=== PATIENT | female | born 1945 | race Caucasian/White ===

== ENCOUNTER 2024-12-07 16:07 | Emergency (ER) | payer MEDICARE, BC ==
[~2024-12-07] VITALS: Ht 175.3 cm; Wt 127.0 kg
[~2024-12-07 16:07] MED LIST: CEPH500 PO
[2024-12-07 16:18] VITALS: BP 146/89
[2024-12-07 16:45] LABS: BASOPHILS ABSOLUTE AUTO 0.06 K/mm3 (0.00-0.23); BASOPHILS PERCENT AUTO 1 % (0-2); EOSINOPHILS ABSOLUTE AUTO 0.19 K/mm3 (0.00-0.68); EOSINOPHILS PERCENT AUTO 4 % (0-6); Hematocrit 37.7 % (33.0-51.0); Hemoglobin 12.5 g/dL (11.5-16.0); IMMATURE GRAN ABSOLUTE AUTO 0.01 K/mm3 (0.00-0.10); IMMATURE GRAN PERCENT AUTO 0 % (0-1); LYMPHOCYTES ABSOLUTE AUTO 1.66 K/mm3 (0.84-5.20); LYMPHOCYTES PERCENT AUTO 31 % (21-46); MONOCYTES ABSOLUTE AUTO 0.61 K/mm3 (0.16-1.47); MONOCYTES PERCENT AUTO 11 % (4-13); Mean Corpuscular HGB 34.6 pg (26.0-34.0); Mean Corpuscular HGB Conc 33.2 g/dL (31.5-36.5); Mean Corpuscular Volume 104 fL (80-100); Mean Platelet Volume 8.8 fL (9.1-12.4); NEUTROPHILS ABSOLUTE AUTO 2.85 K/mm3 (1.96-9.15); NEUTROPHILS PERCENT AUTO 53 % (41-73); Platelet Count 195 K/mm3 (150-400); RDW Coefficient Variation 14.4 % (11.7-14.2); RDW Standard Deviation 55.1 fL (35.1-46.3); Red Blood Cell Count 3.61 M/mm3 (3.80-5.20); White Blood Cell Count 5.38 K/mm3 (4.00-11.30)
[2024-12-07 17:05] LABS: Albumin, Blood 3.5 g/dL (3.4-5.0); Bilirubin, Total 0.7 mg/dL (0.1-1.0); Bun/Creatinine Ratio 24.3 (12.0-20.0); Calcium, Blood 9.4 mg/dL (8.5-10.1); Creatinine, Blood 0.74 mg/dL (0.40-1.00); Globulin, Blood 3.5 g/dL (2.2-4.0); Potassium, Blood 4.4 mmol/L (3.5-5.5)
[2024-12-07] MEDS ORDERED: Lasix20 MG PO (18:37)
== END 2024-12-07 19:07 | disposition left against medical advice (07) ==
LOC: ER 16:07
PROVIDERS: Student in an Organized Health Care Education/Training Program
DX: R60.0 Localized edema (principal); E87.70 Fluid overload, unspecified
CPT/HCPCS: 71046; 80053; 83880; 85025; 93005; 93010; 93971; 99284-25

== ENCOUNTER 2025-03-01 13:38 | Emergency (ER) | payer OTHER, BC ==
[~2025-03-01] VITALS: Ht 175.3 cm; Wt 127.0 kg
[~2025-03-01 13:38] MED LIST changes: +Lasix20 MG PO
[2025-03-01 13:43] VITALS: BP 142/64
[2025-03-01 14:17] LABS: BASOPHILS ABSOLUTE AUTO 0.06 K/mm3 (0.00-0.23); BASOPHILS PERCENT AUTO 1 % (0-2); EOSINOPHILS ABSOLUTE AUTO 0.16 K/mm3 (0.00-0.68); EOSINOPHILS PERCENT AUTO 3 % (0-6); Hematocrit 40.2 % (33.0-51.0); Hemoglobin 13.4 g/dL (11.5-16.0); IMMATURE GRAN ABSOLUTE AUTO 0.01 K/mm3 (0.00-0.10); IMMATURE GRAN PERCENT AUTO 0 % (0-1); LYMPHOCYTES ABSOLUTE AUTO 1.62 K/mm3 (0.84-5.20); LYMPHOCYTES PERCENT AUTO 26 % (21-46); MONOCYTES ABSOLUTE AUTO 0.61 K/mm3 (0.16-1.47); MONOCYTES PERCENT AUTO 10 % (4-13); Mean Corpuscular HGB 35.3 pg (26.0-34.0); Mean Corpuscular HGB Conc 33.3 g/dL (31.5-36.5); Mean Corpuscular Volume 106 fL (80-100); Mean Platelet Volume 8.6 fL (9.1-12.4); NEUTROPHILS ABSOLUTE AUTO 3.73 K/mm3 (1.96-9.15); NEUTROPHILS PERCENT AUTO 60 % (41-73); Platelet Count 229 K/mm3 (150-400); RDW Coefficient Variation 13.6 % (11.7-14.2); RDW Standard Deviation 52.7 fL (35.1-46.3); White Blood Cell Count 6.19 K/mm3 (4.00-11.30)
[2025-03-01 14:40] LABS: Albumin, Blood 3.6 g/dL (3.4-5.0); Bilirubin, Total 0.5 mg/dL (0.1-1.0); Bun/Creatinine Ratio 25.5 (12.0-20.0); Calcium, Blood 9.1 mg/dL (8.5-10.1); Creatinine, Blood 0.82 mg/dL (0.40-1.00); Globulin, Blood 3.6 g/dL (2.2-4.0); Potassium, Blood 5.7 mmol/L (3.5-5.5); Total Protein, Blood 7.2 g/dL (6.4-8.2)
[2025-03-01] MEDS ORDERED: OMEP20ER PO (15:41)
[2025-03-01] MEDS ORDERED: LOSARTAN POTAS100 M1 PO (15:42)
[2025-03-01] MEDS ORDERED: METOPROLOL SUCC25 MG PO (15:42)
[2025-03-01] MEDS ORDERED: FOLI1 PO (15:42)
[2025-03-01] MEDS ORDERED: TOLTERODINE TART4 MG PO (15:43)
[2025-03-01] MEDS ORDERED: METHOTREXATE2.510 PO (15:43)
[2025-03-01] MEDS ORDERED: ESCI10 PO (15:43)
[2025-03-01] MEDS ORDERED: NS 1,000 ML IV SCH (17:25)
[2025-03-01 17:41] LABS: Source, Urine Clean Catch
[2025-03-01 17:53] LABS: Appearance, Urine Clear (Clear); Bilirubin, Urine Neg (Neg); Blood, Urine Neg (Neg); Glucose Qualitative, Urine Neg (Neg); Ketones, Urine Neg (Neg); Leukocyte Esterase, Urine 2+ (Neg); Nitrite, Urine Neg (Neg); Protein, Urine Neg (Neg); Urobilinogen, Urine NORM (Normal)
[2025-03-01 17:57] LABS: Color, Urine Pale Yellow (P-Yellow)
[2025-03-01 18:01] LABS: Bacteria Mod /hpf; Red Blood Cells, Urine Not Seen /hpf (0-2); Squamous Epithelial Cells Few /hpf (Few); White Blood Cells, Urine 25-50 /hpf (0-5)
[2025-03-01] MEDS ORDERED: Trimethoprim/Sulfamethoxazole DS Tab PO ONE (18:50)
[2025-03-01] MEDS ORDERED: CEPH500 PO (19:03)
[2025-03-01] MEDS ORDERED: Cephalexin Monohydrate 500 MG Cap PO ONE (19:05)
== END 2025-03-01 19:10 | disposition home or self-care (01) ==
LOC: ER 13:38
PROVIDERS: Student in an Organized Health Care Education/Training Program
DX: N39.0 Urinary tract infection, site not specified (principal); R53.1 Weakness; M54.50 Low back pain, unspecified; Z79.899 Other long term (current) drug therapy
CPT/HCPCS: 71046; 74176; 80053; 81001; 83880; 84484; 85025; 87077; 87086; 87186; 93005; 93010; 99284-25; A9270; J7030

== ENCOUNTER → 2025-07-04 | Outpatient (CLI) | payer OTHER ==
[~2025-07-04] MED LIST changes: +ESCI10 PO; +FOLI1 PO; +LOSARTAN POTAS100 M1 PO; +METHOTREXATE2.510 PO; +METOPROLOL SUCC25 MG PO; +OMEP20ER PO; +TOLTERODINE TART4 MG PO
[2025-07-04 16:22] LABS: Creatinine, Urine Random 80.6 mg/dL (27.00-270.00); Protein, Urine Random 18.9 mg/dL (0.0-11.9); Protein/Creat Ratio, Ur Random 0.2
== END ==
LOC: LAB SHORT 14:10 → LAB 14:10
PROVIDERS: Family Medicine
DX: E87.79 Other fluid overload (principal)
CPT/HCPCS: 82570; 84156

== ENCOUNTER 2025-09-10 00:57 | Day surgery (SDC) | payer OTHER ==
[2025-09-10 16:08] VITALS: BP 107/85
[2025-09-10] MEDS ORDERED: FURO20 PO (17:42)
[2025-09-10] MEDS ORDERED: ALBU90OI INH (17:43)
[2025-09-10] MEDS ORDERED: CYCL10 PO (17:44)
[2025-09-10] MEDS ORDERED: Pulmicort Fle180 MCG INH (17:44)
[2025-09-10] MEDS ORDERED: ELIQUIS5 M2 PO (17:44)
[2025-09-10] MEDS ORDERED: POTA10T PO (17:45)
[2025-09-10] MEDS ORDERED: NYAMYC15 G1 TOP (17:45)
[2025-09-10] MEDS ORDERED: ZOLEDRONIC4 MG/514 IV (17:46)
[2025-09-10] MEDS ORDERED: Crestor40 MG PO (17:46)
== END 2025-09-10 16:36 | disposition home or self-care (01) ==
LOC: ATC 00:57
DX: M85.851 Other specified disorders of bone density and structure, right thigh (principal); M85.852 Other specified disorders of bone density and structure, left thigh; I50.22 Chronic systolic (congestive) heart failure; I11.0 Hypertensive heart disease with heart failure; Z86.16 Personal history of COVID-19; M81.0 Age-related osteoporosis without current pathological fracture; Z91.048 Other nonmedicinal substance allergy status; Z88.8 Allergy status to other drugs, medicaments and biological substances; Z79.899 Other long term (current) drug therapy
CPT/HCPCS: 96365; J3489